=== PATIENT | female | born 1985 | race Caucasian/White ===

== ENCOUNTER 2023-07-17 09:28 | Emergency (ER) | payer OTHER ==
[~2023-07-17] VITALS: Ht 157.5 cm; Wt 82.1 kg
[2023-07-17 09:31] VITALS: BP 158/93; PULSE 76; RESP 16; TEMP 98.2; O2SAT 98
[2023-07-17] MEDS: KETOROLAC 60 MG/2 ML VIAL IM ONE (09:52)
[2023-07-17] MEDS ORDERED: IBUP-2213 PO (10:00)
[2023-07-17 10:05] VITALS: BP 158/93; PULSE 76; RESP 16; TEMP 98.2; O2SAT 98
== END 2023-07-17 10:05 | disposition home or self-care (01) ==
LOC: EDSEX 09:28 → MED 09:28
DX: M54.50 Low back pain, unspecified (principal); R35.0 Frequency of micturition; Z79.899 Other long term (current) drug therapy
CPT/HCPCS: 81002; 81025; 96372; 99283; J1885